=== PATIENT | male | born 1940 ===

== ENCOUNTER → 2022-03-03 07:45 | Outpatient (BNVA) | payer OTHER, SELFPAY | PROVIDERS: PCP Internal Medicine; Visit Provider Nurse Practitioner Family | DX: G20 Parkinson's disease (principal); S32.029A Unspecified fracture of second lumbar vertebra, initial encounter for closed fracture; W10.9XXA Fall (on) (from) unspecified stairs and steps, initial encounter; Y93.01 Activity, walking, marching and hiking; Y92.9 Unspecified place or not applicable; Y99.8 Other external cause status; R29.898 Other symptoms and signs involving the musculoskeletal system | CPT/HCPCS: 99212 ==